=== PATIENT | female | born 1975 | race Two or more races ===

== ENCOUNTER → 2017-10-16 | Outpatient (CLI) | payer SELFPAY ==
--- NOTE | 2017-10-16 15:36 | RADIOLOGY REPORT (SQ) ---
EXAM DESCRIPTION: U/S [id number] TRNABD 1GES W/ODOP COMPLETED DATE/TIME: 10/16/2017 2:44 pm REASON FOR STUDY: ENCOUNTER FOR SUPRVSN OF NORMAL , FIRST TRIMESTER Z34.81 ENCOUNTER FOR S UPRVSN OF NORMAL , FIRST TRIM COMPARISON: None. TECHNIQUE: Transabdominal static and realtime grayscale images acquired of the pelvis. Additional se lected spectral and color Doppler images recorded. [facility] PAC[facility]. [facility]. CLINICAL DATES: 07/20/2017. 12 weeks 4 days. LIMITATIONS: None. FINDINGS: FETUS: Living intrauterine . ULTRASOUND EGA: 12 weeks 6 days. ULTRASOUND ANTOINETTE: 04/24/2018 CRL: 6.6 cm FHR: 160 beats per minute. SUBCHORIONIC BLEED: No SIZE OF BLEED: Not applicable. UTERUS: No masses. No anomalies. CERVICAL LENGTH: 3.5 cm. Closed. RIGHT ADNEXA: Ovary not seen. No adnexal free fluid. No adnexal masses. LEFT ADNEXA: Ovary not seen. No adnexal free fluid. No adnexal masses. FREE FLUID: None. OTHER: Placental venous lakes are seen. IMPRESSION: LIVING INTRAUTERINE . EGA 12 weeks 6 days. Findings as described. Follow-up as clinically indicated. Trimester of : First - 0 to 13 weeks. TECHNICAL DOCUMENTATION: JOB ID: [id number] [employer]- All Rights Reserved rev Reading location - IP/workstation name: [email or web address]
== END ==
LOC: WI 14:08
PROVIDERS: ATTEND Nurse Practitioner
DX: Z34.81 Encounter for supervision of other normal pregnancy, first trimester (principal)
CPT/HCPCS: 76801

== ENCOUNTER → 2017-10-26 | Outpatient (CLI) | payer SELFPAY ==
[2017-10-26 14:32] LABS: ALANINE AMINOTRANSFERASE 16 U/L (9-52); ALBUMIN 3.5 g/dL (3.5-5.0); ALKALINE PHOSPHATASE 37 U/L (38-126); ANION GAP 8 (5-19); ASPARTATE AMINO TRANSFERASE 21 U/L (14-36); BILIRUBIN,DIRECT 0.4 mg/dL (0.0-0.4); BILIRUBIN,TOTAL 0.5 mg/dL (0.2-1.3); BLOOD UREA NITROGEN 5 mg/dL (7-20); CARBON DIOXIDE 23 mmol/L (22-30); CHLORIDE 104 mmol/L (98-107); GLUCOSE 104 mg/dL (75-110); POTASSIUM 3.6 mmol/L (3.6-5.0); SODIUM 134.9 mmol/L (137-145); TOTAL PROTEIN 6.5 g/dL (6.3-8.2); URIC ACID 3.9 mg/dL (2.5-7.0)
== END ==
LOC: OCH 12:59
PROVIDERS: ATTEND Nurse Practitioner
DX: Z34.82 Encounter for supervision of other normal pregnancy, second trimester (principal)
CPT/HCPCS: 36415; 80053; 83615; 84156; 84550